=== PATIENT | male | born 1945 | race Caucasian/White ===

== ENCOUNTER 2017-03-23 10:10 | Emergency (ER) | payer SELFPAY ==
[~2017-03-23] VITALS: Ht 170.2 cm; Wt 90.7 kg
[2017-03-23 10:10] VITALS: BP_SYST 163
--- NOTE | 2017-03-23 10:10 | NUR ---
Ambualtory with steady gait to bed 1. Handcuffs moved to front of body. Pt accompanied by 4 armed officers. Pt states that he is diabetic takes Novolin 70/30 10units BID and has not taken his insulin today. No other medical complaints stated. Denies pain.
[2017-03-23] MEDS ORDERED: INSULIN NPH/REGULAR 70-30, 100 UNITS/ML, 10 ML VIAL SUBCUT ONE (10:30)
--- NOTE | 2017-03-23 10:43 | NUR ---
Dr. Fay at bedside for evaluation
[2017-03-23 10:49] VITALS: BP_SYST 149
--- NOTE | 2017-03-23 10:49 | NUR ---
Patient given written and verbal discharge instructions and verbalizes understanding. ER MD discussed with patient the results and treatment provided. Patient in stable condition. ID arm band removed. No Rx given. Patient educated on pain management and to follow up with PMD. Pain Scale 0/10. Opportunity for questions provided and answered.
== END 2017-03-23 10:49 ==
LOC: SED 10:10
DX: Z02.89 Encounter for other administrative examinations (principal); E11.9 Type 2 diabetes mellitus without complications; I10 Essential (primary) hypertension
CPT/HCPCS: 96372; 99283; J1815; J7030